=== PATIENT | female | born 1980 | race Caucasian/White ===

== ENCOUNTER 2021-11-21 12:07 | Emergency (ER) | payer OTHER ==
--- NOTE | 2021-11-21 12:12 | ERPHSYRPT ---
- History of Present Illness Time Seen by Provider: 11/21/21 12:12 Source: patient Exam Limitations: language barrier (Patient speaks Moldovan and also tied. Moldovan is her second language.) Physician History: This is a right-handed 41-year-old Kin female who presents to the emergency department approximately 2 hours after being bitten by a dog. The bite is superficial and on her right index finger. Her tetanus status is not up-to-date. She states she has no known drug allergies. Quality: burning Severity: mild Location: hands (Right index finger) Possible Causes: other Associated Symptoms: denies symptoms Allergies/Adverse Reactions: No Known Drug Allergies Allergy (Unverified 11/21/21 12:29) Travel Risk - International Travel Have you traveled outside of the country in past 3 weeks: No - Coronavirus Screening Are you exhibiting any of the following symptoms?: No Close contact with a COVID-19 positive Pt in past 14-21 Days: No - Review of Systems Constitutional: No Symptoms Eyes: No Symptoms Ears, Nose, & Throat: No Symptoms Respiratory: No Symptoms Cardiac: No Symptoms Abdominal/Gastrointestinal: No Symptoms Genitourinary Symptoms: No Symptoms Musculoskeletal: No Symptoms Skin: Other (2 cm axial oriented superficial dog bite laceration right index finger) Neurological: No Symptoms Psychological: No Symptoms Endocrine: No Symptoms Hematologic/Lymphatic: No Symptoms Immunological/Allergic: No Symptoms All Other Systems: Reviewed and Negative - Past Medical History Pertinent Past Medical History: Yes - Past Surgical History Past Surgical History: Yes - Nursing Vital Signs Nursing Vital Signs: Initial Vital Signs Temperature 97.2 F 11/21/21 12:14 Pulse Rate 75 11/21/21 12:14 Respiratory Rate 18 11/21/21 12:14 Blood Pressure 129/83 11/21/21 12:14 O2 Sat by Pulse Oximetry 100 11/21/21 12:14 Pain Scale Pain Intensity 2 - Physical Exam General Appearance: no apparent distress, alert Eye Exam: PERRL/EOMI, eyes nml inspection Ears, Nose, Throat Exam: normal ENT inspection, moist mucous membranes Neck Exam: normal inspection, non-tender, supple, full range of motion Respiratory Exam: airway intact, No chest tenderness, No respiratory distress Gastrointestinal/Abdomen Exam: No tenderness Pelvic Exam: not done Rectal Exam: not done Back Exam: normal inspection, normal range of motion, No CVA tenderness, No vertebral tenderness Extremity Exam: normal range of motion, pelvis stable, lacerations (Superficial linear axially oriented to centimeter dog bite laceration without foreign body or bleeding present. 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, normal mood/affect, nml cerebellar function, nml station & gait, sensation nml Skin Exam: normal color, warm, dry, laceration (See above) Lymphatic Exam: No adenopathy SpO2 Interpretation: normal O2 Delivery: Room Air - Course Nursing assessment & vital signs reviewed: Yes Ordered Tests: Medication Summary Generic Name Dose Route Start Last Admin Trade Name Freq PRN Reason Stop Dose Admin Diphtheria/Tetanus/Acell Pertussis 0.5 ml 11/21/21 12:44 Tdap --Diph,Pertuss(Acell),Tet Vac/Pf 0.5 Ml Vial IM 11/21/21 12:45 .ONCE ONE - Progress Progress: unchanged Counseled pt/family regarding: diagnosis - Departure Departure Disposition: Home Clinical Impression: Dog bite of index finger Condition: Stable Critical Care Time: No Additional Instructions: Keep site clean daily with soap and water. May use antibiotic ointment of colin ce once a day to the superficial laceration site. Take your antibiotics as prescribed. Use Tylenol and ibuprofen for pain control. Follow-up with your primary care physician if there are signs of infection. Prescriptions: Amoxicillin/Potassium Clav [Augmentin 500-125 Tablet] 1 each PO TID 5 Days #15 tablet
[2021-11-21 12:28] VITALS: BP 129/83; PULSE 75; O2SAT 100
[2021-11-21] MEDS ORDERED: Adacel Vial IM ONE ×2 (12:44→12:54)
== END 2021-11-21 13:30 | disposition home or self-care (01) ==
LOC: ED 12:07
DX: S60.470A Other superficial bite of right index finger, initial encounter (principal); W54.0XXA Bitten by dog, initial encounter
CPT/HCPCS: 90471; 90715; 99283

== ENCOUNTER 2023-05-02 14:03 | Emergency (ER) | payer OTHER ==
--- NOTE | 2023-05-02 14:07 | ERPHSYRPT ---
- History of Present Illness Time Seen by Provider: 05/02/23 14:07 Source: patient, family (Patient's provided independent, additional medical history), EMS Exam Limitations: no limitations Physician History: This is a 42-year-old [place] female who presented to the emergency room via ambulance service secondary to complaints of dizziness and headache that began a pproximately noon prior to arrival. Patient states that she was fine last evening and when she woke up today. She was getting ready to go to work when she began having the dizzy spells. She states that she has had them in the distant past. She denies head injury. She has not had fevers or chills. She has no complaints of chest pain or shortness of breath. She has no abdominal pain. Patient takes no medications chronically and she has no known drug allergies. She has no known exposures to individuals with similar symptoms or with flu diagnoses. Patient stated she had some type of a female procedure performed for some cancerous cells that were present. stated gynecology performed some type of cervical scraping in the past. Severity: mild Character of Deficits: none (To moderate) Deficits: no difficulties Baseline/Normal Cognition: alert oriented x 3 Current Cognition: alert oriented x 3 Baseline Gait: walks w/o assistance Associated Symptoms: headache Allergies/Adverse Reactions: No Known Drug Allergies Allergy (Verified 05/02/23 14:25) Hx Tetanus, Diphtheria Vaccination/Date Given: (unknown) Hx Influenza Vaccination/Date Given: No Hx Pneumococcal Vaccination/Date Given: No Travel Risk - International Travel Have you traveled outside of the country in past 3 weeks: No - Coronavirus Screening Are you exhibiting any of the following symptoms?: Yes Close contact with a COVID-19 positive Pt in past 14-21 Days: No - Vaccine Status Have you recieved a Covid-19 vaccination: Yes Maintenance Welder: Unknown - Vaccination Dates Date of 2cond Vaccination (if applicable): ? Dates if Unknown: ? - Review of Systems Constitutional: No Symptoms Eyes: No Symptoms Ears, Nose, & Throat: No Symptoms Respiratory: No Symptoms Cardiac: No Symptoms Abdominal/Gastrointestinal: No Symptoms Genitourinary Symptoms: No Symptoms Musculoskeletal: No Symptoms Skin: No Symptoms Neurological: Dizziness, Headache Psychological: No Symptoms Endocrine: No Symptoms Hematologic/Lymphatic: No Symptoms Immunological/Allergic: No Symptoms All Other Systems: Reviewed and Negative - Past Medical History Pertinent Past Medical History: Yes - Past Surgical History Past Surgical History: Yes - Social History Smoking Status: Never smoker Drug Use: none Patient Lives Alone: No - Nursing Vital Signs Nursing Vital Signs: Initial Vital Signs Temperature 97.4 F 05/02/23 14:06 Pulse Rate 70 05/02/23 14:06 Respiratory Rate 24 05/02/23 14:06 Blood Pressure 125/91 05/02/23 14:06 O2 Sat by Pulse Oximetry 100 05/02/23 14:06 Pain Scale Pain Intensity 0 - [place] Coma Scale Best Eye Response (Sandy): (4) open spontaneously Best Verbal Response ([place]): (5) oriented Best Motor Response ([place]): (6) obeys commands [place] Total: 15 - Physical Exam General Appearance: no apparent distress, alert, anxiety Eye Exam: bilateral eye: normal inspection, PERRL, EOMI Ears, Nose, Throat Exam: normal ENT inspection, moist mucous membranes Neck Exam: normal inspection, non-tender, supple, full range of motion Respiratory: normal breath sounds, lungs clear, airway intact, No chest tenderness, No respiratory distress Cardiovascular: regular rate/rhythm, normal heart sounds, normal peripheral pulses Gastrointestinal: soft, normal bowel sounds, No tenderness Pelvic Exam: not done Rectal Exam: not done Back Exam: normal inspection, normal range of motion, No CVA tenderness, No vertebral tenderness Extremity Exam: normal inspection, normal range of motion, pelvis stable Mental Status: alert, oriented x 3, cooperative social work msw Exam: normal hearing, normal speech, PERRL Motor/Sensory: no motor deficit, no sensory deficit, no pronator drift Skin Exam: normal color, warm, dry SpO2 Interpretation: normal O2 Delivery: Room Air - Course Nursing assessment & vital signs reviewed: Yes EKG Interpreted by Me: RATE (66), Sinus Rhythm, NORMAL AXIS, NORMAL INTERVALS, NORMAL QRS, NORMAL ST-T, Other (No acute ischemic changes on today's twelve-lead EKG.) Ordered Tests: Active Orders 24 hr Category Date Time Status Retirement Specialist STAT Care 05/02/23 14:09 Active Clean Catch Urine Specimen STAT Care 05/02/23 14:08 Active EKG-ER Only STAT Care 05/02/23 14:08 Active IV Insertion STAT Care 05/02/23 14:08 Active HEAD WITHOUT CONTRAST [CT] Stat Exams 05/02/23 14:09 Completed CBC W DIFF Stat Lab 05/02/23 14:28 Completed CMP Stat Lab 05/02/23 14:28 Completed ETHYL ALCOHOL Stat Lab 05/02/23 14:28 Completed MAGNESIUM Stat Lab 05/02/23 14:28 Completed TROPONIN Q4H Lab 05/02/23 14:28 Completed TROPONIN Q4H Lab 05/02/23 18:15 Ordered TROPONIN Q4H Lab 05/02/23 22:15 Ordered Urine Triage Profile Stat Lab 05/02/23 14:24 Completed Medication Summary Discontinued Medications Generic Name Dose Route Start Last Admin Trade Name Juaquin PRN Reason Stop Dose Admin Sodium Chloride 1,000 mls @ 999 mls/hr 05/02/23 14:08 05/02/23 15:24 Sodium Chloride 0.9% 1000 Ml IV 05/02/23 15:08 Infused .Q1H1M STA Infusion Sodium Chloride Confirm 05/02/23 14:19 Sodium Chloride 0.9% 1000 Ml Administered 05/02/23 14:20 Dose 1,000 mls @ ud .ROUTE .STK-MED ONE Meclizine HCl 25 mg 05/02/23 16:05 05/02/23 16:15 Meclizine Hcl 25 Mg Tablet PO 05/02/23 16:06 25 mg STAT ONE Administration Meclizine HCl Confirm 05/02/23 16:14 Meclizine Hcl 25 Mg Tablet Administered 05/02/23 16:15 Dose 25 mg .ROUTE .STK-MED ONE Lab/Rad Data: Laboratory Result Diagrams 05/02/23 14:28 05/02/23 14:28 Laboratory Results 05/02/23 05/02/23 05/02/23 Range/Units 14:52 14:28 14:28 WBC (4.0-10.5) x10^3/uL RBC (4.1-5.4) x10^6/uL Hgb (12.0-16.0) g/dL Hct (35-47) % MCV (78-100) fL MCH (26-32) pg MCHC (32-36) g/dL RDW (11.5-14.0) % Plt Count (150-450) x10^3/uL MPV (7.5-11.0) fL Gran % (36.0-66.0) % Immature Gran % (Auto) (0.00-0.4) % Nucleat RBC Rel Count (0.00-0.1) % Eos # (Auto) (0-0.5) x10^3/uL Immature Gran # (Auto) (0.00-0.03) x10^3u/L Absolute Lymphs (auto) (1.0-4.6) x10^3/uL Absolute Monos (auto) (0.0-1.3) x10^3/uL Absolute Nucleated RBC (0.00-0.01) x10^3u/L Lymphocytes % (24.0-44.0) % Monocytes % (0.0-12.0) % Eosinophils % (0.00-5.0) % Basophils % (0.0-0.4) % Absolute Granulocytes (1.4-6.9) x10^3/uL Basophils # (0-0.4) x10^3/uL Sodium 138 (137-145) mmol/L Potassium 3.7 (3.5-5.1) mmol/L Chloride 107 (98-107) mmol/L Carbon Dioxide 22 (22-30) mmol/L Anion Gap 12.3 (5-15) MEQ/L BUN 12 (7-17) mg/dL Creatinine 1.03 (0.52-1.04) mg/dL Estimated GFR 70.1 ML/MIN Glucose 87 (74-106) mg/dL Calcium 9.2 (8.4-10.2) mg/dL Magnesium 2.0 (1.6-2.3) mg/dL Total Bilirubin 0.40 (0.2-1.3) mg/dL AST 30 (14-36) U/L ALT 14 (0-35) U/L Alkaline Phosphatase 45 (38-126) U/L Troponin I < 0.012 (0.000-0.034) ng/mL Serum Total Protein 7.7 (6.3-8.2) g/dL Albumin 4.3 (3.5-5.0) g/dL Urine Color (YELLOW) Urine Appearance (CLEAR) Urine pH (5-6) Ur Specific [place] (1.005-1.025) POC Urine Protein Conf (Negative) Urine Ketones (NEGATIVE) Urine Nitrite (NEGATIVE) Urine Bilirubin (NEGATIVE) Urine Urobilinogen (0-1) mg/dL Urine Leukocytes (NEGATIVE) Urine RBC (0-5) Alex/ul Urine Microscopic RBC Urine Microscopic WBC Ur Epithelial Cells Urine Bacteria Urine Culture Reflexed Urine Glucose (NEGATIVE) mg/dL Urine Opiates Level (NEGATIVE) Ur Methadone (NEGATIVE) Urine Barbiturates (NEGATIVE) Ur Phencyclidine (PCP) (NEGATIVE) Urine Amphetamine (NEGATIVE) U Benzodiazepine Level (NEGATIVE) Urine Cocaine (NEGATIVE) Urine Marijuana (THC) (NEGATIVE) Ethyl Alcohol < 10 (0-10) mg/dL Influenza Type A Ag NEGATIVE (NEGATIVE) Influenza Type B Ag NEGATIVE (NEGATIVE) RSV (PCR) NEGATIVE (NEGATIVE) SARS-CoV-2 (PCR) NEGATIVE (NEGATIVE) 05/02/23 05/02/23 05/02/23 Range/Units 14:28 14:24 14:24 WBC 8.6 (4.0-10.5) x10^3/uL RBC 5.48 H (4.1-5.4) x10^6/uL Hgb 12.9 (12.0-16.0) g/dL Hct 42.2 (35-47) % MCV 77.0 L (78-100) fL MCH 23.5 L (26-32) pg MCHC 30.6 L (32-36) g/dL RDW 13.6 (11.5-14.0) % Plt Count 263 (150-450) x10^3/uL MPV 11.0 (7.5-11.0) fL Gran % 57.5 (36.0-66.0) % Immature Gran % (Auto) 0.1 (0.00-0.4) % Nucleat RBC Rel Count 0.0 (0.00-0.1) % Eos # (Auto) 0.15 (0-0.5) x10^3/uL Immature Gran # (Auto) 0.01 (0.00-0.03) x10^3u/L Absolute Lymphs (auto) 2.83 (1.0-4.6) x10^3/uL Absolute Monos (auto) 0.63 (0.0-1.3) x10^3/uL Absolute Nucleated RBC 0.00 (0.00-0.01) x10^3u/L Lymphocytes % 32.8 (24.0-44.0) % Monocytes % 7.3 (0.0-12.0) % Eosinophils % 1.7 (0.00-5.0) % Basophils % 0.6 (0.0-0.4) % Absolute Granulocytes 4.96 (1.4-6.9) x10^3/uL Basophils # 0.05 (0-0.4) x10^3/uL Sodium (137-145) mmol/L Potassium (3.5-5.1) mmol/L Chloride (98-107) mmol/L Carbon Dioxide (22-30) mmol/L Anion Gap (5-15) MEQ/L BUN (7-17) mg/dL Creatinine (0.52-1.04) mg/dL Estimated GFR ML/MIN Glucose (74-106) mg/dL Calcium (8.4-10.2) mg/dL Magnesium (1.6-2.3) mg/dL Total Bilirubin (0.2-1.3) mg/dL AST (14-36) U/L ALT (0-35) U/L Alkaline Phosphatase (38-126) U/L Troponin I (0.000-0.034) ng/mL Serum Total Protein (6.3-8.2) g/dL Albumin (3.5-5.0) g/dL Urine Color YELLOW (YELLOW) Urine Appearance CLEAR (CLEAR) Urine pH 7.0 (5-6) Ur Specific [place] 1.015 (1.005-1.025) POC Urine Protein Conf NEGATIVE (Negative) Urine Ketones NEGATIVE (NEGATIVE) Urine Nitrite NEGATIVE (NEGATIVE) Urine Bilirubin NEGATIVE (NEGATIVE) Urine Urobilinogen 0.2 (0-1) mg/dL Urine Leukocytes NEGATIVE (NEGATIVE) Urine RBC NEGATIVE (0-5) Alex/ul Urine Microscopic RBC Pending Urine Microscopic WBC Pending Ur Epithelial Cells Pending Urine Bacteria Pending Urine Culture Reflexed Pending Urine Glucose NEGATIVE (NEGATIVE) mg/dL Urine Opiates Level NEGATIVE (NEGATIVE) Ur Methadone NEGATIVE (NEGATIVE) Urine Barbiturates NEGATIVE (NEGATIVE) Ur Phencyclidine (PCP) NEGATIVE (NEGATIVE) Urine Amphetamine NEGATIVE (NEGATIVE) U Benzodiazepine Level NEGATIVE (NEGATIVE) Urine Cocaine NEGATIVE (NEGATIVE) Urine Marijuana (THC) NEGATIVE (NEGATIVE) Ethyl Alcohol (0-10) mg/dL Influenza Type A Ag (NEGATIVE) Influenza Type B Ag (NEGATIVE) RSV (PCR) (NEGATIVE) SARS-CoV-2 (PCR) (NEGATIVE) - Progress Progress: improved, re-examined Progress Note: 05/02/23 14:24 This patient's medical issue is 1 of moderate complexity. Level complex in the workup performed is based on review of the patient's past medical history, review the patient's medication list, reviewed patient's drug allergy list, history present illness and physical findings on examination. Workup in this patient includes placement of intravenous line, infusion of normal saline solut ion, CBC, CMP, troponin level, twelve-lead EKG, urinalysis and CT scan of the head. 05/02/23 17:3 I reviewed and interpreted the laboratory data results. There is no evidence of any significant, acute, emergent findings. CT scan of the head without contrast shows no acute intracranial abnormalities. The study was interpreted by the radiologist and I reviewed the impression. Counseled pt/family regarding: lab results, diagnosis, need for follow-up, rad results Medical Desision Making - Independent Historian Additional History obtained from: Spouse - Diagnostic Testing Diagnostic test were ordered, analyzed, and reviewed by me: Yes Radiological Interpretation: Reviewed by me, Teleradiologist Report - Risk of complications The pt has a mod risk of morbidity or mortality based on: Need for prescription drug management - Departure Departure Disposition: Home Clinical Impression: Dizziness Condition: Stable Critical Care Time: No Additional Instructions: Drink plenty of fluids. Take your medications as prescribed. Follow-up with your primary care provider by phone tomorrow, 05/03/2023, to make arrangements for follow-up appointment. Prescriptions: Meclizine HCl 25 mg [Antivert 25 mg] 25 mg PO Q8H PRN #10 tablet PRN Reason: Dizziness
[2023-05-02] MEDS ORDERED: Sodium Chloride 0.9% 1000 ML 1,000 ML IV STA (14:08)
[2023-05-02] MEDS ORDERED: Sodium Chloride 0.9% 1000 ML 1,000 ML ONE (14:19)
[2023-05-02 14:24] VITALS: TEMP 97.4; O2SAT 100
[2023-05-02 14:34] LABS: Absolute Neutrophil Ct (ANC) 4.96 x10^3/uL (1.4-6.9); BASOPHIL % 0.6 % (0.0-0.4); Basophil (Absolute #) 0.05 x10^3/uL (0-0.4); Eosinophil % 1.7 % (0.00-5.0); Eosinophil (Absolute #) 0.15 x10^3/uL (0-0.5); Hematocrit 42.2 % (35-47); Hemoglobin 12.9 g/dL (12.0-16.0); IMMATURE GRAN # 0.01 x10^3u/L (0.00-0.03); IMMATURE GRAN % 0.1 % (0.00-0.4); Lymphocyte (Absolute #) 2.83 x10^3/uL (1.0-4.6); Lymphocytes % 32.8 % (24.0-44.0); Mean Corpuscular Hemoglobin 23.5 pg (26-32); Mean Corpuscular Hgb Concent. 30.6 g/dL (32-36); Monocyte (Absolute #) 0.63 x10^3/uL (0.0-1.3); Monocytes % 7.3 % (0.0-12.0); Neutrophil % 57.5 % (36.0-66.0); Platelet Count 263 x10^3/uL (150-450); Red Blood Count 5.48 x10^6/uL (4.1-5.4); Red Cell Distribution Width 13.6 % (11.5-14.0); White Blood Count 8.6 x10^3/uL (4.0-10.5)
[2023-05-02 14:51] LABS: ALBUMIN 4.3 g/dL (3.5-5.0); ALKALINE PHOSPHATASE 45 U/L (38-126); ANION GAP 12.3 MEQ/L (5-15); BLOOD UREA NITROGEN 12 mg/dL (7-17); CHLORIDE 107 mmol/L (98-107); Calcium 9.2 mg/dL (8.4-10.2); Carbon Dioxide 22 mmol/L (22-30); Creatinine 1 1.03 mg/dL (0.52-1.04); EST GLOMERULAR FILTRATION RATE 70.1 ML/MIN; ETHYL ALCOHOL < 10 mg/dL (0-10); Glucose 87 mg/dL (74-106); Potassium 3.7 mmol/L (3.5-5.1); SGOT/AST 30 U/L (14-36); SGPT/ALT 14 U/L (0-35); SODIUM 138 mmol/L (137-145); Total Protein 7.7 g/dL (6.3-8.2)
[2023-05-02 15:33] LABS: INFLUENZA A NEGATIVE (NEGATIVE); INFLUENZA B NEGATIVE (NEGATIVE); RESPIRATORY SYNCTIAL VIRUS NEGATIVE (NEGATIVE); SARS-CoV-2 Xpert Express NEGATIVE (NEGATIVE)
--- NOTE | 2023-05-02 16:01 | XRAY ---
CLINICAL HISTORY:Dizziness COMPARISON:None. TECHNIQUE:Multiple, contiguous, non-enhanced CT scan of the brain in axial plane with multiplanar reconstructions was performed. FINDINGS: Normal size and shape of ventricles, basal cisterns and cortical sulci. Normal montano and white matter differentiation. Basal ganglia, thalamus, and internal capsule appear normal. Brainstem and cristel appear normal. No shift of midline structures. Unremarkable posterior fossa. Largely preserved cranial calvarial bones. Visualized paranasal sinuses show mucosal thickening in right ethmoidal sinus representing sinusitis. Small pete bullosa in both middle turbinates, appear infected on right side. IMPRESSION: 1. No acute intracerebral hemorrhage or infarct is seen. 2. No acute intracranial abnormality seen. Electronically Signed by: Stewart Leal MD. (05/02/2023 15:56:39 EST)
[2023-05-02] MEDS ORDERED: ANTIVERT 25 MG PO ONE (16:05)
[2023-05-02] MEDS ORDERED: ANTIVERT 25 MG ONE (16:14)
[2023-05-02 16:42] LABS: Amphetamine,Urine NEGATIVE (NEGATIVE); Barbiturate,Urine NEGATIVE (NEGATIVE); Benzodiazepine,Urine NEGATIVE (NEGATIVE); Cocaine,Urine NEGATIVE (NEGATIVE); Methadone,Urine NEGATIVE (NEGATIVE); Opiate,Urine NEGATIVE (NEGATIVE); PCP,Urine NEGATIVE (NEGATIVE); THC,Urine NEGATIVE (NEGATIVE)
[2023-05-02 17:10] VITALS: BP 119/76; PULSE 64; RESP 18
[2023-05-02 17:24] LABS: Appearance CLEAR (CLEAR)
[2023-05-02 17:25] LABS: Bilirubin NEGATIVE (NEGATIVE); Glucose NEGATIVE (NEGATIVE); Ketones NEGATIVE (NEGATIVE); Nitrite NEGATIVE (NEGATIVE); Protein,Urine Dip NEGATIVE (Negative); RBC NEGATIVE Ery/ul (0-5); Specific Gravity 1.015 (1.005-1.025); Urobilinogen 0.2 mg/dL (0-1)
[2023-05-02 18:22] LABS: ADD URINE CULTURE? NO (NO); Bacteria None Seen /HPF (None Seen); Epithelial Cells Few /HPF (None Seen); Hyaline Casts None Seen /LPF (0-2); RBC NONE SEEN /HPF (0-5); WBC NONE SEEN /HPF (0-5)
== END 2023-05-02 17:54 | disposition home or self-care (01) ==
LOC: ED 14:03
DX: R42 Dizziness and giddiness (principal); R51.9 Headache, unspecified
CPT/HCPCS: 0241U; 36000; 36415; 70450; 80053; 80307; 81015; 82077; 83735; 84484; 85025; 93005; 93041; 99284; A9270-GY